=== PATIENT | female | born 1940 | race Hispanic/Latino ===

== ENCOUNTER 2017-10-12 08:36 | Emergency (ER) | payer MEDICARE ==
[2017-10-12] MEDS ORDERED: Sodium Chloride 0.9% 1,000 ML IV STA (09:50)
--- NOTE | 2017-10-12 10:22 | ED PDOC ---
Arrival/HPI - General Chief Complaint: Cough, Cold, Congestion Time Seen by Provider: 10/12/17 09:11 Historian: Patient, Family - History of Present Illness Narrative History of Present Illness (Text): 10/12/17 10:15 Pt is 71 yo F who presents with family at bedside, c/o productive cough x 3 weeks plus chills. Pt was assessed and treated by her PMD, Dr. Toscano for bronchitis. A course of Levaquin was completed followed by 2 days of Augmentin without change in status. Pt reports 'croupy cough' that leaves her sob along with body pain throughout, also reports diarrhea x 2 today. Family is requesting further testing to ascertain cause of condition. Denies, cp, n/v, GIB , CAMPBELL, or fever. Time/Duration: Prior to Arrival, > week Symptom Course: Unchanged Quality: Aching, Pressure Severity Level: Moderate Activities at Onset: Rest, Light, Eating, Sleeping Context: Sitting, Standing, Walking, Exertion, Home Past Medical History - Provider Review Nursing Documentation Reviewed: Yes - Travel History Have you recently traveled outside [place] w/in the past 3 mons?: No - Past History Past History: No Previous - Infectious Disease Hx of Infectious Diseases: None - Tetanus Immunization Tetanus Immunization: Unknown - Reproductive Menopause: Yes - Cardiac Hx Hypertension: Yes - Pulmonary Hx Bronchitis: Yes - Neurological Hx Neurological Disorder: No - HEENT Hx HEENT Disorder: No - Renal Hx Renal Disorder: No - Psychiatric Hx Substance Use: No Family/Social History - Physician Review Nursing Documentation Reviewed: Yes Family/Social History: No Known Family HX Smoking Status: Never Smoked Hx Alcohol Use: No Hx Substance Use: No Allergies/Home Meds Allergies/Adverse Reactions: Allergies No Known Allergies Allergy (Verified 05/26/14 13:22) Home Medications: Home Meds Medication Instructions Recorded Confirmed Amoxicillin/Clavulanate [Augmentin 1 tab PO BID 10/12/17 10/12/17 875 MG-125 MG] Enalapril Maleate [Vasotec] 10 mg PO DAILY 10/12/17 10/12/17 Methylprednisone 4 mg 10/12/17 Promethazine/Codeine 5 ml PO PRN PRN 10/12/17 10/12/17 [Codeine/Promethazine 10 MG/5 Ml-6.25 MG/5 Ml] Review of Systems - Review of Systems Constitutional: Fatigue Eyes: Normal ENT: Normal. absent: Hearing Changes, Tinnitus, TMJ Pain, Voice Changes, Sore Throat, Rhinorrhea, Epistaxis, Sinus Congestion, Other Respiratory: SOB, Cough, Sputum Cardiovascular: Normal. absent: Chest Pain, Palpitations, Edema, Calf Pain, RALPH , Orthopnea, SY, Syncope, Other Gastrointestinal: Diarrhea, Nausea, Appetite Changes. absent: Normal, Abdominal Pain, Stool Changes, Constipation, Vomiting, Hematochezia, Hematemesis , Anorexia, Food Intolerance, Other Musculoskeletal: Myalgias. absent: Normal, Arthralgias, Back Pain, Neck Pain, Joint Swelling, Other Skin: Normal. absent: Rash, Pruritis, Skin Lesions, Laceration, Abscess, Ulcer , Cellulitis, Other Neurological: Normal. absent: Headache, Dizziness, Focal Weakness, Gait Changes , Speech Changes, SC, Facial Droop, DE, Disequilibrium, SE, Seizure, Other Endocrine: Normal. absent: Diaphoresis, Polyuria, Polydipsia, Other Physical Exam Vital Signs Reviewed: Yes Vital Signs Temp Pulse Resp BP Pulse Ox 10/12/17 13:59 97.7 F 78 18 139/78 99 10/12/17 11:35 97.9 F 88 16 133/79 98 10/12/17 08:45 97.5 F L 65 18 187/82 H 97 Temperature: Afebrile Blood Pressure: Normal Pulse: Regular Respiratory Rate: Normal Appearance: Positive for: Ill-Appearing, Uncomfortable Pain Distress: Mild Mental Status: Positive for: Alert and Oriented X 3 - Systems Exam Head: Present: Atraumatic, Normocephalic Pupils: Present: PERRL Conjunctiva: Present: Normal Mouth: Present: Moist Mucous Membranes, Normal Lips, Normal Tounge Pharnyx: Present: Normal. No: ERYTHEMA, EXUDATE, TONSILS ENLARGED, Peritonsilar Swelling, Uvular Deviation, Muffled/Hoarse Voice, Strider, Soft Palate/Uvular Edema, Other Nose (Internal): Present: Normal Inspection Neck: Present: Normal Range of Motion Respiratory/Chest: Present: Clear to Auscultation, Good Air Exchange. No: Respiratory Distress, Accessory Muscle Use Cardiovascular: Present: Regular Rate and Rhythm, Normal S1, S2. No: Murmurs Abdomen: Present: Normal Bowel Sounds. No: Tenderness, Distention, Peritoneal Signs Back: Present: Normal Inspection. No: CVA Tenderness, Midline Tenderness, Paraspinal Tenderness, Pain with Leg Raise, Decubitus Ulcer, Other Upper Extremity: Present: Normal Inspection. No: Cyanosis, Edema Lower Extremity: Present: Normal Inspection. No: Edema Neurological: Present: GCS=15, CN II-XII Intact, Speech Normal Skin: Present: Warm, Dry, Normal Color. No: Rashes Lymphatic: No: Cervical Adenopathy, Axillary Adenopathy, Inguinal Adenopathy, Other Medical Decision Making ED Course and Treatment: 10/12/17 10:28 Pt is 71 yo F who presents with family at bedside, c/o productive cough x 3 weeks plus chills. Pt was assessed and treated by her PMD, for bronchitis. A course of Levaquin was completed followed by 2 days of Augmentin without change in status Impression: On exam, pt has a productive cough that leaves her slightly short of breath; lungs are CTB and no adventitious sounds appreciated. Pt is hemodynamically stable. Plan: 1. IV fluids ns @ 1000cc over 60 mins x2 2. cbc w diff, cmp, ua, sputum cx, cxr x2 views, 3. toradol 15 mg ivp for bodyaches 4. Solumedrol ivp CXR reviewed by Dr. Toscano who saw pt at bedside Recommended dispo home with Ventolin inhaler and complete course of abx 10/12/17 13:44 - Lab Interpretations Lab Results: 10/12/17 10:05 10/12/17 10:05 Lab Results 10/12/17 10:05: Sodium 142, Potassium 3.7, Chloride 107, Carbon Dioxide 25, Anion Gap 14, BUN 16, Creatinine 0.7, Est GFR ( Amer) > 60, Est GFR (Non- Af Amer) > 60, Random Glucose 91, Calcium 10.1, Total Bilirubin 0.7, AST 31, ALT 31, Alkaline Phosphatase 69, Total Protein 7.6, Albumin 4.4, Globulin 3.2, Albumin/Globulin Ratio 1.4 10/12/17 10:05: Influenza Typ A,B (EIA) Negative for flu a/b 10/12/17 10:05: WBC 7.3, RBC 4.79, Hgb 14.3, Hct 42.8, MCV 89.4, MCH 29.9, MCHC 33.4, RDW 13.3, Plt Count 211, MPV 11.3 H, Gran % 72.6 H, Lymph % (Auto) 17.5 L , Moffat % (Auto) 9.2 H, Eos % (Auto) 0.4 L, Baso % (Auto) 0.3, Gran # 5.27, Lymph # 1.3, Moffat # 0.7 H, Eos # 0.0, Baso # 0.02 - RAD Interpretation Radiology Orders: 10/12/17 09:52 CXR [CHEST TWO VIEWS (PA/LAT)] [RAD] Stat Impression: Ill-defined opacity of the lateral midlung zone; may be related to PNA but requires fu XR to r/o mass - Medication Orders Current Medication Orders: Discontinued Medications Albuterol/Ipratropium (Duoneb 3 Mg/0.5 Mg (3 Ml) Ud) 3 ml IH STAT STA Stop: 10/12/17 12:38 Last Admin: 10/12/17 13:38 Dose: 3 ml Sodium Chloride (Sodium Chloride 0.9%) 1,000 mls @ 999 mls/hr IV .Q1H1M STA Stop: 10/12/17 10:50 Last Admin: 10/12/17 10:20 Dose: 999 mls/hr eMAR Start Stop Document 10/12/17 10:20 SF (Rec: 10/12/17 10:51 [email or web address] Intravenous Solution Start Date 10/12/17 Start Time 10:20 End Date 10/12/17 End time 11:21 Total Infusion Time 61 Sodium Chloride (Sodium Chloride 0.9%) 500 mls @ 999 mls/hr IV .Q31M STA Stop: 10/12/17 13:46 Last Admin: 10/12/17 13:37 Dose: 999 mls/hr eMAR Start Stop Document 10/12/17 13:37 SF (Rec: 10/12/17 13:38 [email or web address] Intravenous Solution Start Date 10/12/17 Start Time 13:38 End Date 10/12/17 End time 14:10 Total Infusion Time 32 Ketorolac Tromethamine (Toradol) 15 mg IVP STAT STA Stop: 10/12/17 09:57 Last Admin: 10/12/17 10:51 Dose: 15 mg MAR Pain Assessment Document 10/12/17 10:51 SF (Rec: 10/12/17 10:52 SF [email or web address] Pain Reassessment Is this a pain reassessment? Yes Sleep Is patient sleeping during reassessment? No Presence of Pain Presence of Pain Yes Pain Scale Used Pain Scale Used Numeric IVP Administration Document 10/12/17 10:51 SF (Rec: 10/12/17 10:52 [email or web address] Charges for Administration # of IVP Administrations 1 Methylprednisolone (Solu-Medrol) 125 mg IVP STAT STA Stop: 10/12/17 13:12 Last Admin: 10/12/17 13:38 Dose: 125 mg IVP Administration Document 10/12/17 13:38 SF (Rec: 10/12/17 13:38 SF [email or web address] Charges for Administration # of IVP Administrations 1 Disposition/Present on Arrival - Present on Arrival Any Indicators Present on Arrival: Yes History of DVT/PE: No History of Uncontrolled Diabetes: No Urinary Catheter: No History of Decub. Ulcer: No History Surgical Site Infection Following: None - Disposition Have Diagnosis and Disposition been Completed?: Yes Diagnosis: Bronchitis, Cough Disposition: HOME/ ROUTINE Disposition Time: 13:39 Patient Plan: Discharge Patient Problems: Current Active Problems Problem Status Onset Bronchitis Acute Cough Acute Condition: STABLE Discharge Instructions (ExitCare): Albuterol (By breathing), Acute Bronchitis ( ED) Additional Instructions: Dear Patient, You have been diagnosed with bronchitis that responds best with supportive care such as plenty of rest, fluids, tylenol or ibuprofen for pain and fever and prescribed antibiotics. You have also been given Ventolin to assist you with your breathing. If you experience fever, pain, chest pain or severe shortness of breath of any other alarming symptoms, return to the emergency room immediately. Please follow up with your Primary Doctor in less than a week. All the best in your recovery. Be well Prescriptions: Albuterol HFA [Ventolin HFA 90 mcg/actuation (8 g)] 2 puff IH [id number] 30 Days # 1 puff Referrals: Giorgio Toscano MD [Primary Care Provider] - Follow up with primary Forms: [employer] (Congolese)
[2017-10-12 10:30] LABS: BASO # 0.02 [, K/mm3] (0.0-2.0); BASO % 0.3 % (0.0-3.0); EOS % 0.4 % (1.5-5.0); GRAN # 5.27 (1.4-6.5); GRAN % 72.6 % (50.0-68.0); HEMOGLOBIN 14.3 g/dL (12.0-16.0); LYMPH # 1.3 (1.2-3.4); LYMPH % 17.5 % (22.0-35.0); MEAN CELL VOLUME 89.4 fl (80.0-105.0); MEAN CORPUSCULAR HEMOGLOBIN 29.9 pg (25.0-35.0); MEAN CORPUSCULAR HGB CONC 33.4 g/dl (31.0-37.0); MEAN PLATELET VOLUME 11.3 fl (7.0-11.0); MONO # 0.7 (0.1-0.6); MONO % 9.2 % (1.0-6.0); RBC 4.79 [, 10^6/uL] (3.5-6.1); RED CELL DISTRIBUTION WIDTH 13.3 % (11.5-14.5); WHITE BLOOD COUNT 7.3 [, 10^3/ul] (4.5-11.0)
[2017-10-12 10:45] LABS: ALB/GLOB RATIO 1.4 (1.1-1.8); ALBUMIN 4.4 g/dL (3.0-4.8); ALT/SGPT 31 U/L (7-56); AST/SGOT 31 U/L (14-36); BLOOD UREA NITROGEN 16 mg/dL (7-21); CALCIUM 10.1 mg/dL (8.4-10.5); GFR AFRICAN-AMERICAN > 60; GFR NON-AFRICAN AMERICAN > 60
--- NOTE | 2017-10-12 12:05 | RAD ---
HISTORY: cough COMPARISON: None available. TECHNIQUE: Chest PA and lateral FINDINGS: LUNGS: Ill-defined opacity the lateral right mid lung zone possibly related to pneumonia. Recommend follow-up to assess for complete resolution. Please note that chest x-ray has limited sensitivity for the detection of pulmonary masses. PLEURA: No significant pleural effusion identified. No definite pneumothorax . CARDIOVASCULAR: Heart size appears within normal limits. OSSEOUS STRUCTURES: Osseous demineralization. Kyphosis. Degenerative changes. VISUALIZED UPPER ABDOMEN: Unremarkable. OTHER FINDINGS: None. IMPRESSION: Ill-defined opacity the lateral right mid lung zone possibly related to developed pneumonia. Recommend follow-up to assess for complete resolution in order to exclude possibility of neoplasm.
[2017-10-12] MEDS ORDERED: Albuterol-Ipratrop 3 mg / 0.5 (3 ml) UD IH STA (12:37)
[2017-10-12] MEDS ORDERED: Sodium Chloride 0.9% 500 ML IV STA (13:16)
[2017-10-12 14:01] VITALS: BP 139/78; PULSE 78; RESP 18; TEMP 97.7; O2SAT 99
== END 2017-10-12 13:00 | disposition home or self-care (01) ==
LOC: ED 08:36
DX: J40 Bronchitis, not specified as acute or chronic (principal); R05 Cough; I10 Essential (primary) hypertension
CPT/HCPCS: 71046; 80053; 85025; 87804; 96361; 96374; 96375; 99285; J1885; J2930; J7040